=== PATIENT | male | born 1995 | race Caucasian/White ===

== ENCOUNTER 2020-09-08 09:25 | Emergency (ER) | payer OTHER ==
[~2020-09-08] VITALS: Ht 172.7 cm; Wt 93.4 kg
[2020-09-08 09:36] VITALS: Ht 172.7 cm; Wt 93.4 kg
[2020-09-08 10:30] LABS: microscopic required? NO
[2020-09-08 10:59] LABS: UA SPECIFIC GRAVITY >=1.030 (1.005-1.035); urine erythrocyte NEGATIVE (NEGATIVE)
[2020-09-08] MEDS ORDERED: MORGIDOX 1X100100 MG PO (11:41)
[2020-09-08] MEDS ORDERED: NOR10T PO (11:41)
[2020-09-08] MEDS ORDERED: ZOF4 SL (11:41)
[2020-09-08 12:15] VITALS: BP 128/81
== END 2020-09-08 12:15 | disposition home or self-care (01) ==
LOC: ED 09:25
PROVIDERS: Emergency Medicine
DX: N45.2 Orchitis (principal)
CPT/HCPCS: 87491; 87591; J0696; Q0162